=== PATIENT | female | born 1940 | race African-American/Black ===

== ENCOUNTER 2021-03-23 10:54 | Observation (INO) | payer OTHER ==
[2021-03-23 11:08] VITALS: TEMP 98.9; BMI 20.1
[2021-03-23] MEDS ORDERED: ASPIRIN 81 MG CHEWABLE TABLETS PO ONE (11:34)
[2021-03-23] MEDS ORDERED: LABETALOL HCL 5 MG/1 ML (100MG/20 ML VIAL) IVPUSH ONE (11:35)
[2021-03-23 11:41] LABS: BASO % 1.3 % (0-2.0); HEMATOCRIT 43.3 % (32.4-45.2); LYMPH % 24.2 % (8-40); MCH 28.8 pg (25.7-33.7); MCHC 32.4 g/dl (32.0-36.0); MEAN CELL VOLUME 88.8 fl (80-96); MEAN PLT VOLUME 9.1 fl (7.5-11.1); MONO % 7.3 % (3.8-10.2); NEUT % 63.2 % (42.8-82.8); PLATELET COUNT 193 10^3/uL (134-434); RBC 4.88 M/mm3 (3.60-5.2); WHITE BLOOD COUNT 5.7 K/mm3 (4.0-10.0)
[2021-03-23 11:44] LABS: URINE APPEARANCE Clear; URINE BILIRUBIN Negative (NEGATIVE); URINE COLOR Yellow; URINE GLUCOSE (UA) Negative (NEGATIVE); URINE KETONE Negative (NEGATIVE); URINE LEUK ESTERASE Negative (NEGATIVE); URINE NITRITE Negative (NEGATIVE); URINE PROTEIN Negative (NEGATIVE); URINE UROBILINOGEN 0.2 mg/dL (0.2-1.0)
[2021-03-23] MEDS ORDERED: ASPIRIN 81 MG CHEWABLE TABLETS ONE (11:45)
[2021-03-23 12:06] LABS: CHLORIDE 109 mmol/L (98-107); SODIUM 140 mmol/L (136-145)
[2021-03-23 12:08] LABS: ALBUMIN 3.7 g/dl (3.4-5.0); ANION GAP 6 MMOL/L (8-16); BLOOD UREA NITROGEN 11.3 mg/dL (7-18); CALCIUM 8.2 mg/dL (8.5-10.1); CO2 25 mmol/L (21-32)
[2021-03-23 12:09] LABS: GLUCOSE,RANDOM 94 mg/dL (74-106)
[2021-03-23 12:11] LABS: SGPT/ALT 25 U/L (13-61)
[2021-03-23 12:12] LABS: CREATININE 0.8 mg/dL (0.55-1.3); SGOT/AST 37 U/L (15-37)
[2021-03-23 12:13] LABS: BILIRUBIN,TOTAL 0.6 mg/dL (0.2-1); TOT PROT 7.3 g/dl (6.4-8.2)
[2021-03-23 12:14] LABS: ALK PHOS 141 U/L (45-117)
[2021-03-23] MEDS ORDERED: amLODIPine BESYLATE 10 MG TABLET (FP) PO SCH (16:45)
[2021-03-23] MEDS ORDERED: amLODIPine BESYLATE 5 MG TABLET (FP) ONE (17:01)
[2021-03-23 19:09] VITALS: BP 182/77; PULSE 76
== END 2021-03-23 21:43 | disposition left against medical advice (07) ==
LOC: JER 10:54 → JERBED 14:58
PROVIDERS: ATTEND Internal Medicine
PROC: 3E033GC Introduction of Other Therapeutic Substance into Peripheral Vein, Percutaneous Approach (ICD-10-PCS; principal; 2021-03-23)
DX: R07.9 Chest pain, unspecified (principal); F17.210 Nicotine dependence, cigarettes, uncomplicated; I20.9 Angina pectoris, unspecified; M81.0 Age-related osteoporosis without current pathological fracture; I20.0 Unstable angina; I11.9 Hypertensive heart disease without heart failure
CPT/HCPCS: 36415; 71045-TC-FY; 80053; 81003; 82550; 84484; 85025; 87086; 93005; 93010; 96374; 99285-25; C9803; G0378; U0003; U0005

== ENCOUNTER 2022-08-19 09:24 | Observation (INO) | payer OTHER ==
[2022-08-19 11:33] LABS: BASO % 0.8 % (0-2.0); EOS % 0.6 % (0-4.5); HEMATOCRIT 44.5 % (32.4-45.2); HEMOGLOBIN 14.5 GM/dL (10.7-15.3); LYMPH % 11.5 % (8-40); MCH 29.7 pg (25.7-33.7); MCHC 32.7 g/dl (32.0-36.0); MEAN CELL VOLUME 91.1 fl (80-96); MEAN PLT VOLUME 8.3 fl (7.5-11.1); MONO % 7.9 % (3.8-10.2); NEUT % 79.2 % (42.8-82.8); PLATELET COUNT 236 10^3/uL (134-434); RBC 4.89 M/mm3 (3.60-5.2); RDW 14.5 % (11.6-15.6)
[2022-08-19 12:02] LABS: CALCIUM 9.5 mg/dL (8.5-10.1)
[2022-08-19 12:03] LABS: ALBUMIN 3.8 g/dl (3.4-5.0); BLOOD UREA NITROGEN 22.6 mg/dL (7-18)
[2022-08-19 12:06] LABS: CREATININE 1.2 mg/dL (0.55-1.3)
[2022-08-19 12:07] LABS: BILIRUBIN,TOTAL 0.5 mg/dL (0.2-1)
[2022-08-19 12:08] LABS: TOT PROT 7.3 g/dl (6.4-8.2)
[2022-08-19] MEDS ORDERED: ALBUTEROL SO4 0.083% IH SOL 2.5 MG/3 ML VIAL.NEB. NEB ONE (12:34)
[2022-08-19] MEDS ORDERED: CALCIUM GLUCONATE 10% - 1,000 MG/10 ML VIAL IVPB ONE (12:35)
[2022-08-19] MEDS ORDERED: DEXTROSE 50%-WATER - 25 GM/50 ML VIAL IVPUSH ONE (12:37)
[2022-08-19] MEDS ORDERED: INSULIN REGULAR HUMAN 100 UNITS/ML *VIAL IVPUSH ONE (12:38)
[2022-08-19] MEDS ORDERED: SODIUM ZIRCONIUM CYCLOSILICATE (LOKELMA) 5 GM PACKET PO ONE (12:38)
[2022-08-19] MEDS ORDERED: FUROSEMIDE 40 MG/4 ML INJECTABLE VIAL IVPUSH ONE (12:39)
[2022-08-19] MEDS ORDERED: DEXTROSE 50%-WATER 25 GM/50 ML DISP.SYRIN ONE (13:22)
[2022-08-19] MEDS ORDERED: SODIUM ZIRCONIUM CYCLOSILICATE (LOKELMA) 5 GM PACKET ONE (13:22)
[2022-08-19] MEDS ORDERED: FUROSEMIDE 40 MG/4 ML INJECTABLE VIAL ONE (13:23)
[2022-08-19] MEDS ORDERED: CALCIUM GLUC IN NACL, ISO-OSM 1 GM/50 ML BAG IVPB ONE (13:23)
[2022-08-19] MEDS ORDERED: LABETALOL HCL 5 MG/1 ML (100MG/20 ML VIAL) IVPUSH ONE ×2 (13:55→21:04)
[2022-08-19] MEDS ORDERED: LABETALOL HCL 5 MG/1 ML (100MG/20 ML VIAL) ONE (13:58)
[2022-08-19] MEDS ORDERED: IBUPROFEN 400 MG TABLET (FP) PO ONE ×2 (18:13→18:24)
[2022-08-19 20:05] LABS: BLOOD UREA NITROGEN 20.7 mg/dL (7-18); CALCIUM 10.1 mg/dL (8.5-10.1); CREATININE 1.2 mg/dL (0.55-1.3)
[2022-08-19] MEDS ORDERED: ACETAMINOPHEN 325 MG TABLET (FP) PO PRN (21:16)
[2022-08-19] MEDS ORDERED: DOXYCYCLINE INJECTION 100 MG in DEXTROSE 5%-WATER 100 ML IVPB ONE (21:34)
[2022-08-19] MEDS ORDERED: MELATONIN 5 MG TABLETS PO ONE (22:07)
[2022-08-19] MEDS ORDERED: DOXYCYCLINE HYCLATE 100 MG VIAL ONE (22:27)
[2022-08-19] MEDS ORDERED: MELATONIN 5 MG TABLETS ONE (22:27)
[2022-08-19] MEDS ORDERED: amLODIPine BESYLATE 5 MG TABLET (FP) PO SCH (23:59)
[2022-08-20 08:09] VITALS: BMI 20.1
[2022-08-20] MEDS: amLODIPine BESYLATE 5 MG TABLET (FP) PO SCH (12:22)
[2022-08-20] MEDS: DOXYCYCLINE INJECTION 100 MG in DEXTROSE 5%-WATER 100 ML IVPB SCH ×2 (12:22→21:51)
[2022-08-20] MEDS: ENOXAPARIN NA (PORCINE) 30 MG/0.3 ML DISP.SYRIN SQ SCH (12:22)
[2022-08-20 12:49] LABS: BASO % 0.6 % (0-2.0); EOS % 0.9 % (0-4.5); HEMATOCRIT 43.2 % (32.4-45.2); HEMOGLOBIN 14.2 GM/dL (10.7-15.3); MCH 29.9 pg (25.7-33.7); MCHC 32.8 g/dl (32.0-36.0); MEAN CELL VOLUME 90.9 fl (80-96); MEAN PLT VOLUME 9.1 fl (7.5-11.1); MONO % 9.4 % (3.8-10.2); NEUT % 76.1 % (42.8-82.8); PLATELET COUNT 237 10^3/uL (134-434); RBC 4.75 M/mm3 (3.60-5.2); RDW 14.2 % (11.6-15.6)
[2022-08-20 13:07] LABS: CALCIUM 9.7 mg/dL (8.5-10.1)
[2022-08-20 13:08] LABS: ALBUMIN 3.6 g/dl (3.4-5.0); BLOOD UREA NITROGEN 32.2 mg/dL (7-18); MAGNESIUM 2.1 mg/dL (1.8-2.4)
[2022-08-20 13:11] LABS: PHOSPHOROUS 3.8 mg/dL (2.5-4.9)
[2022-08-20 13:12] LABS: BILIRUBIN,TOTAL 0.5 mg/dL (0.2-1)
[2022-08-20 13:13] LABS: CREATININE 1.4 mg/dL (0.55-1.3)
[2022-08-20 13:15] LABS: TOT PROT 7.1 g/dl (6.4-8.2)
[2022-08-21] MEDS: ENOXAPARIN NA (PORCINE) 30 MG/0.3 ML DISP.SYRIN SQ SCH (09:42)
[2022-08-21] MEDS: amLODIPine BESYLATE 5 MG TABLET (FP) PO SCH (09:43)
[2022-08-21] MEDS: DOXYCYCLINE INJECTION 100 MG in DEXTROSE 5%-WATER 100 ML IVPB SCH (09:43)
[2022-08-21 11:25] VITALS: BP 161/85; PULSE 85; RESP 19; TEMP 97.8
== END 2022-08-21 01:15 | disposition left against medical advice (07) ==
LOC: JER 09:24 → SUATTDRO 09:24 → JERBED 20:48 → J7W 08-20 05:44
PROVIDERS: ADMIT Internal Medicine; ATTEND Internal Medicine
PROC: 3E033GC Introduction of Other Therapeutic Substance into Peripheral Vein, Percutaneous Approach (ICD-10-PCS; principal; 2022-08-19)
PROC: 3E03329 Introduction of Other Anti-infective into Peripheral Vein, Percutaneous Approach (ICD-10-PCS; 2022-08-19)
PROC: 3E013VG Introduction of Insulin into Subcutaneous Tissue, Percutaneous Approach (ICD-10-PCS; 2022-08-19)
DX: R22.1 Localized swelling, mass and lump, neck (principal); I16.0 Hypertensive urgency; I10 Essential (primary) hypertension; J43.9 Emphysema, unspecified; M81.0 Age-related osteoporosis without current pathological fracture; F17.210 Nicotine dependence, cigarettes, uncomplicated; E87.5 Hyperkalemia
CPT/HCPCS: 0241U-QW; 36415; 70491-TC; 71275-TC; 80048; 80053; 83735; 84100; 84439; 84443; 84481; 85025; 93005; 93010; 96365; 96366; 96375; 97116-GP; 97161-GP; 99285-25; G0378; Q9967

== ENCOUNTER 2024-07-18 10:10 | Observation (INO) | payer OTHER ==
[2024-07-18 10:33] VITALS: TEMP 97.6; BMI 19.1
[2024-07-18] MEDS ORDERED: hydrALAZINE HCL 20 MG/ML VIAL ONE (11:30)
[2024-07-18] MEDS: hydrALAZINE HCL 20 MG/ML VIAL IVPB ONE (11:49)
[2024-07-18 12:05] LABS: EOS % 0.8 % (0-4.5); HEMATOCRIT 43.7 % (32.4-45.2); HEMOGLOBIN 14.1 GM/dL (10.7-15.3); LYMPH % 15.5 % (8-40); MCH 29.3 pg (25.7-33.7); MCHC 32.3 g/dl (32.0-36.0); MEAN CELL VOLUME 90.7 fl (80-96); MEAN PLT VOLUME 8.3 fl (7.5-11.1); MONO % 7.6 % (3.8-10.2); NEUT % 75.1 % (42.8-82.8); PLATELET COUNT 197 10^3/uL (134-434); RBC 4.82 M/mm3 (3.60-5.2); WHITE BLOOD COUNT 7.4 K/mm3 (4.0-10.0)
[2024-07-18 12:13] LABS: INR 0.94 (0.83-1.09); PROTHROMBIN TIME (PATIENT) 10.6 SEC (9.7-13.0)
[2024-07-18 12:16] LABS: ACTIVATED PTT 27.2 SECONDS (25.2-36.5)
[2024-07-18 12:23] LABS: POTASSIUM 4.8 mmol/L (3.5-5.1)
[2024-07-18 12:25] LABS: CALCIUM 9.9 mg/dL (8.5-10.1)
[2024-07-18 12:26] LABS: BLOOD UREA NITROGEN 13.3 mg/dL (7-18)
[2024-07-18 12:28] LABS: URINE APPEARANCE CLEAR; URINE BILIRUBIN NEGATIVE (NEGATIVE); URINE COLOR YELLOW; URINE GLUCOSE (UA) NEGATIVE (NEGATIVE); URINE KETONE NEGATIVE (NEGATIVE); URINE LEUK ESTERASE NEGATIVE (NEGATIVE); URINE NITRITE NEGATIVE (NEGATIVE); URINE PROTEIN NEGATIVE (NEGATIVE); URINE UROBILINOGEN 0.2 mg/dL (0.2-1.0)
[2024-07-18 12:30] LABS: BILIRUBIN,TOTAL 0.9 mg/dL (0.2-1); TOT PROT 7.4 g/dl (6.4-8.2)
[2024-07-18 12:53] VITALS: RESP 16
[2024-07-18] MEDS ORDERED: LIDOCAINE 4% PATCH TP ONE (17:22)
[2024-07-18] MEDS: LIDOCAINE 5% TOPICAL PATCH TP ONE (17:36)
[2024-07-18] MEDS ORDERED: amLODIPine BESYLATE 5 MG TABLET (FP) ONE (17:55)
[2024-07-18] MEDS ORDERED: LISINOPRIL 20 MG TABLET ONE (17:55)
[2024-07-18] MEDS: amLODIPine BESYLATE 5 MG TABLET (FP) PO SCH (18:00)
[2024-07-18] MEDS: LISINOPRIL 20 MG TABLET PO SCH (18:17)
[2024-07-18 18:56] VITALS: BP 156/94; PULSE 93
[2024-07-18 18:57] LABS: CHOLESTEROL 212 mg/dL (50-200)
[2024-07-18 19:00] LABS: HDL CHOLESTEROL 104 mg/dL (40-60); LDL CHOLESTEROL (ONLY SJRH) 93 mg/dL (5-100)
[2024-07-18] MEDS ORDERED: MELATONIN 5 MG TABLETS ONE (22:45)
[2024-07-18] MEDS: MELATONIN 5 MG TABLETS PO PRN (22:48)
[2024-07-19] MEDS: LIDOCAINE PATCH REMOVAL MC SCH (05:03)
[2024-07-19] MEDS ORDERED: ENOXAPARIN NA (PORCINE) 40 MG/0.4 ML DISP.SYRIN SQ SCH (10:00)
[2024-07-19] MEDS ORDERED: NICOTINE 14 MG/24 HOURS TOPICAL PATCH TD SCH (10:00)
== END 2024-07-19 06:18 | disposition left against medical advice (07) ==
LOC: JER 10:10 → JERBED 17:56
PROVIDERS: ADMIT Internal Medicine; ATTEND Internal Medicine
PROC: 3E033GC Introduction of Other Therapeutic Substance into Peripheral Vein, Percutaneous Approach (ICD-10-PCS; principal; 2024-07-18)
DX: R07.9 Chest pain, unspecified (principal); R55 Syncope and collapse; I10 Essential (primary) hypertension; G89.29 Other chronic pain; M19.90 Unspecified osteoarthritis, unspecified site; J43.9 Emphysema, unspecified; Z90.49 Acquired absence of other specified parts of digestive tract
CPT/HCPCS: 0241U-QW; 36415; 70450-TC; 71045-TC-FY; 71275-TC; 74174-TC; 80053; 80061; 81003; 83036; 83690; 84443; 84484; 85025; 85379; 85610; 85730; 86140; 93005; 93010; 93880-TC; 96374; 99285-25; G0378; Q9967